=== PATIENT | female | born 1965 | race Caucasian/White ===

== ENCOUNTER 2018-04-28 13:39 | Outpatient (CLI) | payer OTHER | END 2018-04-28 13:40 | disposition home or self-care (01) | LOC: BICMAMMO 13:39 | PROVIDERS: ATTEND Family Medicine | DX: Z12.31 Encounter for screening mammogram for malignant neoplasm of breast (principal); M85.80 Other specified disorders of bone density and structure, unspecified site | CPT/HCPCS: 77063; 77067; 77080 ==

== ENCOUNTER 2019-06-03 07:57 | Outpatient (CLI) | payer OTHER ==
--- NOTE | 2019-06-03 08:57 | BD ---
DEXA BONE MINERAL DENSITY STUDY: HISTORY: Encounter for screening for osteoporosis. COMPARISON: DEXA study 04/28/2018. FINDINGS: Lumbar Spine: BMD (g/cm2) L1 1.088 T-Score: 0.9 1.7 L2 1.242 T-Score: 2.0 2.9 L3 1.223 T-Score: 1.3 2.2 L4 1.208 T-Score: 1.3 2.3 L1-L4 1.141 T-Score: 1.3 2.3 Femoral Neck: 0.951 T-Score: 0.9 1.8 Total Femur: 1.152 T-Score: 1.7 2.3 WHO classification normal. Impression: Normal bone mineral density. POS: CET
== END 2019-06-03 07:58 | disposition home or self-care (01) ==
LOC: BICMAMMO 07:57
PROVIDERS: ATTEND Family Medicine
DX: Z13.820 Encounter for screening for osteoporosis (principal)
CPT/HCPCS: 77080

== ENCOUNTER 2019-06-09 12:48 | Outpatient (CLI) | payer OTHER ==
--- NOTE | 2019-06-14 10:40 | PFT ---
PATIENT HISTORY: HEIGHT: 67 IN WEIGHT: 192 LBS SMOKER: NEVER HOW LONG: NA PACKS PER DAY: PRODUCTIVE COUGH: LUNG DISEASE: PHYSICIAN INTERPRETATION FINAL REPORT: Patient had good effort and good cooperation. FVC 3.43 (92%), FEV1 2.76 (94%), FEV1/FVC 0.80 RV 1.36 (73%), TLC 4.88 (87%) DLCO 13.84 (55%) The FEV1 and the FVC fall within the normal limits. The ratio is also normal suggesting there is no element of obstructive air flow limitation. The Residual volume is minimally impaired. Total Lung Capacity falls within the normal limits. Diffusion capacity is moderately impaired. IMPRESSION: Overall, these pulmonary function studies are consistent with an isolated moderate reduction in gas exchange. Clinical and radiographic correlation for pulmonary vascular disorders, including anemia, should be considered. Early interstitial lung disease cannot be excluded. I have no priors for comparison. Inside Finisher: MAE [employer] Assistant Manager: MAE ASENCIO
== END 2019-06-09 12:49 | disposition home or self-care (01) ==
LOC: CP 12:48
PROVIDERS: ATTEND Family Medicine
DX: D46.9 Myelodysplastic syndrome, unspecified (principal)
CPT/HCPCS: 94060; 94727; 94729